=== PATIENT | female | born 1930 | race Caucasian/White ===

== ENCOUNTER → 2018-03-26 | Outpatient (CLI) | payer MEDICARE, BC ==
--- NOTE | 2018-03-26 12:57 | US ---
EXAMINATION TYPE: US abdomen complete DATE OF EXAM: 03/26/2018 COMPARISON: NONE CLINICAL HISTORY: R10.10 abd pain unspec. elderly patient with abd pain that has since stopped eu to medication EXAM MEASUREMENTS: Liver Length: 14.8 cm Gallbladder Wall: 0.2 cm CBD: 0.2 cm Spleen: 8.5 cm Right Kidney: 9.0 x 3.4 x 3.1 cm Left Kidney: N/A Pancreas: wnl Liver: wnl Gallbladder: wnl Evidence for sonographic Collins's sign: no CBD: wnl Spleen: wnl Right Kidney: wnl Left Kidney: not seen due to bowel gas Upper IVC: wnl Abd Aorta: wnl The liver is homogenous. The intrahepatic portion of the IVC and proximal abdominal aorta are within normal limits. There is no evidence of cholelithiasis. Common bile duct is unremarkable. The visu alized portions of the pancreas are homogenous. The spleen is unremarkable. Kidneys are symmetric a nd free of hydronephrosis. No renal lesions are seen. IMPRESSION: No distinct abnormality seen.
== END | disposition home or self-care (01) ==
LOC: RADUSWWP 12:15
PROVIDERS: ATTEND Internal Medicine
DX: R10.10 Upper abdominal pain, unspecified (principal)
CPT/HCPCS: 76700

== ENCOUNTER → 2018-04-04 | Outpatient (CLI) | payer MEDICARE, BC ==
--- NOTE | 2018-04-04 15:19 | NM ---
EXAMINATION TYPE: NM hepatobiliary w EF DATE OF EXAM: 04/04/2018 COMPARISON: HIDA scan January 31, 2011. Complete abdominal ultrasound March 26, 2018 HISTORY: Right upper quadrant pain. TECHNIQUE: After the intravenous administration of 4.93 mCi Tc 99m Mebrofenin hepatobiliary scintigra phy is performed. Immediate images post injection. FINDINGS: There is satisfactory initial accumulation of tracer by the liver. The gallbladder is visualized wit hin 30 minutes. The small bowel activity is noted within 60 minutes. At one hour 8 ounces of oral e nsure plus is given to mimic CCK and gallbladder ejection fraction is calculated at 54 %, in the norm al range. Therefore there is no scintigraphic evidence of cystic or common bile duct obstruction to suggest acute cholecystitis or gallbladder dyskinesia. IMPRESSION: Exam is within normal limits.
== END ==
LOC: RADNMMAIN 12:55
PROVIDERS: ATTEND Internal Medicine
DX: R10.10 Upper abdominal pain, unspecified (principal)
CPT/HCPCS: 78226; A9537

== ENCOUNTER 2018-07-03 21:51 | Emergency (ER) | payer MEDICARE, BC ==
[2018-07-03 21:57] VITALS: RESP 16; TEMP 98.3
--- NOTE | 2018-07-03 22:42 | ED ---
General Adult HPI - General Chief complaint: Recheck/Abnormal Lab/Rx Stated complaint: Constipation Time Seen by Provider: 07/03/18 22:08 Source: patient Mode of arrival: ambulatory Limitations: no limitations - History of Present Illness Initial comments: This patient is an 88-year-old woman who presents with complaint of feeling constipated for 2 days. She states that she did not have a bowel movement yesterday. Today she tried using suppository twice. She states that she has been having urge to have bowel movement but the mother will be perianal pain which seems to prevent her having bowel movement. She is also complaining of having some leakage of watery stool today. Onset/Timin -: days(s) Radiation: non-radiation Consistency: constant Improves with: none Worsens with: none Associated Symptoms: denies other symptoms Treatments Prior to Arrival: none - Related Data Home Medications Medication Instructions Recorded Confirmed Ascorbic Acid [Vitamin C] 500 mg PO DAILY 09/14/15 07/03/18 Calcium Carbonate [Calcium] 600 mg PO DAILY 09/14/15 07/03/18 L.acidoph,Paracasei, B.lactis 1 cap PO DAILY 09/14/15 07/03/18 [Probiotic] Cholecalciferol [Vitamin D3] 1,000 unit PO DAILY 09/30/15 07/03/18 Multivit-Min/FA/Lycopen/Lutein 1 tab PO DAILY 09/30/15 07/03/18 [Centrum Silver Tablet] Magnesium Tab 1 tab PO QAM 10/19/15 07/03/18 Aspirin EC [Ecotrin Low Dose] 162 mg PO DAILY 07/03/18 07/03/18 Atenolol [Tenormin] 50 mg PO BID 07/03/18 07/03/18 Atorvastatin Calcium [Lipitor] 10 mg PO DAILY 07/03/18 07/03/18 Losartan [Cozaar] 25 mg PO BID 07/03/18 07/03/18 Magnesium Tab 2 tab PO HS 07/03/18 07/03/18 Mirabegron [Myrbetriq] 25 mg PO AC-SUPPER 07/03/18 07/03/18 Omeprazole 20 mg PO DAILY 07/03/18 07/03/18 amLODIPine [Norvasc] 5 mg PO DAILY 07/03/18 07/03/18 Allergies Allergy/AdvReac Type Severity Reaction Status Date / Time nickel Allergy Rash/Hives Verified 07/03/18 22:11 valacyclovir Allergy Confusion Verified 07/03/18 22:11 weeds Allergy Rash/Hives Uncoded 07/03/18 21:57 Review of Systems ROS Statement: Those systems with pertinent positive or pertinent negative responses have been documented in the HPI. ROS Other: All systems not noted in ROS Statement are negative. Constitutional: Denies: fever, chills Respiratory: Denies: cough, dyspnea Cardiovascular: Denies: chest pain, palpitations Gastrointestinal: Reports: constipation. Denies: abdominal pain, nausea, vomiting, diarrhea, melena, hematochezia Genitourinary: Denies: dysuria, hematuria Musculoskeletal: Denies: back pain Skin: Denies: rash Past Medical History Past Medical History: Atrial Flutter, GERD/Reflux, Hypertension, Osteoarthritis (OA), Pneumonia, Skin Disorder Additional Past Medical History / Comment(s): heart murmer, hiatal hernia, gastritis, constipation, cellulitis lower left leg, hx anemia, precancerous skin cancer, just finished rx for cat scratch on leg-cleared up History of Any Multi-Drug Resistant Organisms: None Reported Past Surgical History: Adenoidectomy, Hernia Repair, Joint Replacement, Tonsillectomy Additional Past Surgical History / Comment(s): EXC JARVIS CATARACTS. SURG Jarvis Feet. Jarvis Breast Biopsies. Jarvis CTR. TOTAL LT KNEE. Past Anesthesia/Blood Transfusion Reactions: No Reported Reaction Past Psychological History: No Psychological Hx Reported Smoking Status: Never smoker Past Alcohol Use History: None Reported Past Drug Use History: None Reported - Past Family History Father Additional Family Medical History / Comment(s): Cerebral Blood Clot General Exam Limitations: no limitations General appearance: alert, in no apparent distress Head exam: Present: atraumatic, normocephalic Eye exam: Present: normal appearance Respiratory exam: Present: normal lung sounds bilaterally. Absent: respiratory distress, wheezes, rales, rhonchi, stridor Cardiovascular Exam: Present: regular rate, normal rhythm, normal heart sounds GI/Abdominal exam: Present: soft. Absent: distended, tenderness, guarding, rebound, rigid, mass Rectal exam: Present: normal rectal tone, fecal impaction, hemorrhoids. Absent : mass, tenderness Extremities exam: Present: normal inspection, normal capillary refill. Absent: pedal edema, calf tenderness Neurological exam: Present: alert Skin exam: Present: warm, dry, intact, normal color. Absent: rash Course Vital Signs 07/03/18 21:53 Temperature 98.3 F Pulse Rate 59 L Respiratory 16 Rate Blood Pressure 144/80 O2 Sat by Pulse 96 Oximetry Medical Decision Making - Medical Decision Making Patient is an 88-year-old woman with fecal impaction. After discussion of risks and benefits, patient does agree to bedside disimpaction. He was given a small dose of morphine prior. I then performed digital disimpaction. The patient tolerated with a trace of bleeding, no complications. Discussed further care and follow-up. Disposition Clinical Impression: Fecal impaction in rectum Disposition: HOME SELF-CARE Condition: Fair Instructions (If sedation given, give patient instructions): Constipation (ED) Is patient prescribed a controlled substance at d/c from ED?: No Referrals: Andrew Cain MD [Primary Care Provider] - 1-2 days
[2018-07-04] MEDS ORDERED: MORPHINE SULFATE 4 MG/ML SYRINGE IM STA (00:32)
[2018-07-04] MEDS ORDERED: MAGNESIUM CITRATE 296 ML BOTTLE PO ONE (01:33)
[2018-07-04 02:41] VITALS: BP 126/71; PULSE 80
== END 2018-07-04 02:40 | disposition home or self-care (01) ==
LOC: EC 21:51
DX: K56.41 Fecal impaction (principal); I48.92 Unspecified atrial flutter; K21.9 Gastro-esophageal reflux disease without esophagitis; I10 Essential (primary) hypertension; M19.90 Unspecified osteoarthritis, unspecified site; D64.9 Anemia, unspecified; Z85.828 Personal history of other malignant neoplasm of skin; Z79.82 Long term (current) use of aspirin; Z79.899 Other long term (current) drug therapy; Z88.8 Allergy status to other drugs, medicaments and biological substances; Z91.048 Other nonmedicinal substance allergy status; Z96.652 Presence of left artificial knee joint
CPT/HCPCS: 96372; 99283

== ENCOUNTER → 2020-01-13 | Outpatient (CLI) | payer MEDICARE, BC ==
[2020-01-13 16:25] LABS: Basophils # (A) 0.1 k/uL (0-0.2); Basophils % (A) 1 %; Eosinophils # (A) 0.2 k/uL (0-0.7); Eosinophils % (A) 2 %; HCT 38.8 % (34.0-46.0); HGB 12.4 gm/dL (11.4-16.0); Lymphocytes # (A) 1.4 k/uL (1.0-4.8); Lymphocytes % (A) 20 %; MCHC 31.9 g/dL (31.0-37.0); MCV 97.1 fL (80.0-100.0); Mean Platelet Volume 6.8; Monocytes # (A) 0.6 k/uL (0-1.0); Monocytes % (A) 8 %; Neutrophils # (A) 4.7 k/uL (1.3-7.7); Neutrophils % (A) 65 %; Platelet Count 238 k/uL (150-450); WBC 7.2 k/uL (3.8-10.6)
== END | disposition home or self-care (01) ==
LOC: LABWHC1 15:31
PROVIDERS: ATTEND Nurse Practitioner
DX: K62.5 Hemorrhage of anus and rectum (principal)
CPT/HCPCS: 36415; 85025

== ENCOUNTER → 2020-01-16 | Outpatient (CLI) | payer MEDICARE, BC ==
--- NOTE | 2020-01-16 13:33 | MR ---
EXAMINATION TYPE: MR abdomen wo/w con DATE OF EXAM: 01/16/2020 COMPARISON: None available. The technologist reports that a stat read is requested. Technologist also reports that prior imaging was done at [facility] and unable to get any prior reports until Saturday. HISTORY: 89-year-old female R93.5 Abnormal Findings intra-abdominal regions including and retroperito neum. Possible pancreatic head mass, duodenal mass, gastric outlet obstruction. Technique: Multiplanar, multisequence images of the abdomen were obtained before and after administra tion of 4.5 mL intravenous Gadavist gadolinium contrast. FINDINGS: Trace perihepatic ascites is noted. No focal liver lesion. No significant loss of signal to suggest f atty infiltration on opposed phase T1-weighted images. There is some focal biliary ductal dilatation along the anterior mid liver. Portal venous system. How ever, prominent vessels noted along the anterior mid liver that joins to the left portal vein, possib le intrahepatic portosystemic shunting. Mild bilateral pelvicaliectasis. Probable extrarenal pelvis on both sides. Symmetric uptake and excre tion of contrast from both kidneys. Otherwise, spleen, adrenal glands, and gallbladder appear within normal limits. No definite pancreatic lesion. Crowded structures and motion artifact limits assessment. There is a dextro convex scoliosis centered along the upper lumbar spine. Moderate stool burden. No upper abdominal lymphadenopathy identified. 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 IMPRESSION: 1. There are exam limitations due to motion and crowded intra-abdominal structures. No definite pancr eatic head mass is identified. There is no abnormal distention of the stomach on the present exam whi ch would generally be seen with gastric outlet obstruction. Recommend making the patient's outside im aging (where these findings were described) available for review after which a second look assessment can be performed. 2. Some focal intrahepatic biliary ductal dilatation along the anterior mid liver. There also seems t o be some prominent vasculature in this region, probable intrahepatic portosystemic shunting. No susp icious mass is clearly identified. 3. Bilateral extrarenal pelves. Moderate stool burden. 4. 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
== END | disposition home or self-care (01) ==
LOC: RADMRIMAIN 11:13
PROVIDERS: ATTEND Nurse Practitioner
DX: I71.4 Abdominal aortic aneurysm, without rupture (principal); K83.8 Other specified diseases of biliary tract
CPT/HCPCS: 74183; A9585

== ENCOUNTER → 2020-01-27 | Day surgery (SDC) | payer MEDICARE, BC ==
[2020-01-26 12:40] VITALS: BMI 18.8
[~2020-01-27] MED LIST: LACTATED RINGERS 1,000 ML IV SCH; LIDOCAINE 1% (10MG/ML) FOR IV START INTRADERMA PRN; PROPOFOL 10 MG/ML 20 ML VIAL IV ONE
[2020-01-27 11:44] VITALS: RESP 16; TEMP 98
--- NOTE | 2020-01-27 12:51 | P.PCN ---
Date of Procedure: 01/27/20 Procedure(s) Performed: Brief history: Patient is a pleasant 89-year-old white female scheduled for an elective upper endoscopy as well as colonoscopy as a part of evaluation of with active bleeding for the last several months duration. She also had an MRI of the abdomen done that showed evidence of possible gastric outlet obstruction and dilated duodenum. Procedure performed: Esophagogastroduodenoscopy Colonoscopy with snare polypectomy, cautery and Endo Clip placement Preoperative diagnosis: Dilated and duodenum and recent MRI Rectal bleeding Anesthesia: MAC Procedure: After informed consent was obtained from the patient was brought into the endoscopy unit and IV sedation was administered by anesthesia under continuous monitoring. Initially upper endoscopy was done. The Olympus GF 160 video endoscope was inserted inserted into the mouth and esophagus intubated without any difficulty and was gradually advanced into the stomach and duodenum and carefully examined. The bulb and second part of the duodenum appeared normal. The scope was advanced into the third part of the duodenum that also appeared normal. The scope was then withdrawn into the stomach adequately insufflated with air and upon careful examination the antrum and body, cardia and fundus appeared normal. The scope was then withdrawn into the esophagus. Moderate size hiatal hernia noted. The GE junction was located at 34 cm to the incisors. It appeared regular with no erythema erosions or ulcerations. Rest of the esophagus appeared normal. Patient tolerated the procedure well. At this time the patient continued to remain sedation. Initial digital rectal examination was normal. Olympus CF 160 video colonoscope was then inserted into the rectum and gradually advanced to the cecum without any difficulty. Careful examination was performed as the scope was gradually being withdrawn. The prep was excellent. The cecum, ascending colon, transverse colon, descending colon, sigmoid colon and rectum appeared normal. Retroflexion was performed in the rectum and all the dentate line there was a 2 cm friable polyp noted which was removed by snare polypectomy and piecemeal fashion. Following the polypectomy there was significant bleeding noted at the polypectomy site and hence initially go probe was performed using cautery and could not achieve hemostasis. Subsequently an Endo Clip was placed and hemostasis was achieved.. Patient tolerated the procedure well. Impression: 1. Upper endoscopy revealed small to moderately sessile hernia but no evidence of esophagitis or peptic ulcer disease. 2. Colonoscopy revealed a 2 cm polyp on the dentate line status post snare polypectomy followed by bleeding, status post cautery and Endo Clip placements with good hemostasis Recommendations: Findings of this examination were discussed with the patient as well as her family.. She was advised to follow with the biopsy results she'll be seen in office in 2 weeks. Based on the biopsy results will plan a repeat sigmoidoscopy in 3 months.
[2020-01-27 13:17] VITALS: BP 140/65; PULSE 59
== END ==
LOC: ORWHC2ENDO 10:38
PROVIDERS: ATTEND Internal Medicine Gastroenterology
DX: D01.3 Carcinoma in situ of anus and anal canal (principal); R23.8 Other skin changes; A63.0 Anogenital (venereal) warts; K44.9 Diaphragmatic hernia without obstruction or gangrene; I10 Essential (primary) hypertension; E78.5 Hyperlipidemia, unspecified; K21.9 Gastro-esophageal reflux disease without esophagitis; Z79.899 Other long term (current) drug therapy; Z79.82 Long term (current) use of aspirin; Z91.09 Other allergy status, other than to drugs and biological substances; Z97.2 Presence of dental prosthetic device (complete) (partial)
CPT/HCPCS: 88305; 88342; 88341; 45385; 43235; J2704; 45382

== ENCOUNTER 2020-04-29 08:53 | Day surgery (SDC) | payer MEDICARE, BC ==
[2020-04-27 15:12] VITALS: BMI 18.5
[~2020-04-29 08:53] MED LIST changes: +ACETAMINOPHEN TAB 500 MG TAB PO PRN; +DEXAMETHASONE SOD PHOSPHATE 4 MG/ML 1 ML VIAL IV ONE; +HEPARIN SODIUM,PORCINE 5,000 UNIT/ML 1 ML VIAL SQ PRN; +HYDROmorphone 0.5 MG/0.5 ML SYRINGE IVP PRN; -LIDOCAINE 1% (10MG/ML) FOR IV START INTRADERMA PRN; +MIDAZOLAM 2 MG/2 ML VIAL IV PRN; +ONDANSETRON 4 MG/2 ML VIAL IVP ONE; -PROPOFOL 10 MG/ML 20 ML VIAL IV ONE; +Pre Op ABX Message 1 EACH MISC MISCELLANE ONE
[2020-04-29] MEDS ORDERED: NA PHOS,M-B/NA PHOS,DI-BA 133 ML ENEMA RECTAL ONE (09:10)
--- NOTE | 2020-04-29 09:21 | P.GSHP ---
History of Present Illness H&P Date: 04/29/20 Chief Complaint: anal polyp 89-year-old female recently found to have a polypoid mass at the dentate line on colonoscopy. This was removed using the snare with cautery technique in a piecemeal fashion. Bleeding was identified and controlled using an Endo Clip. 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 She was seen in the office following that. Patient denied discussed options. We are here today to proceed with examination under anesthesia and possible surgical excision of any residual polypoid tissue. Patient otherwise asymptomatic. Past Medical History Past Medical History: Atrial Flutter, GERD/Reflux, Hypertension, Osteoarthritis (OA), Pneumonia, Skin Disorder Additional Past Medical History / Comment(s): anal lesion,hx heart murmer, hiatal hernia, gastritis, constipation, cellulitis lower left leg, hx anemia, precancerous skin cancer History of Any Multi-Drug Resistant Organisms: None Reported Past Surgical History: Adenoidectomy, Hernia Repair, Joint Replacement, Tonsillectomy Additional Past Surgical History / Comment(s): EXC JARVIS CATARACTS. SURG Jarvis Feet. Jarvis Breast Biopsies. Jarvis CTR. TOTAL LT KNEE. Past Anesthesia/Blood Transfusion Reactions: No Reported Reaction Additional Past Anesthesia/Blood Transfusion Reaction / Comment(s): no hx problems with prior blood transfusions Smoking Status: Never smoker - Past Family History Father Additional Family Medical History / Comment(s): Cerebral Blood Clot Mother Family Medical History: No Reported History Medications and Allergies Home Medications Medication Instructions Recorded Confirmed Type Ascorbic Acid [Vitamin C] 500 mg PO DAILY 09/14/15 04/27/20 History Calcium Carbonate [Calcium] 600 mg PO BID 09/14/15 04/27/20 History L.acidoph,Paracasei, B.lactis 1 cap PO DAILY 09/14/15 04/27/20 History [Probiotic] Cholecalciferol [Vitamin D3] 1,000 unit PO DAILY 09/30/15 04/27/20 History Multivit-Min/FA/Lycopen/Lutein 1 tab PO DAILY 09/30/15 04/27/20 History [Centrum Silver Tablet] Aspirin EC [Ecotrin Low Dose] 81 mg PO BID 07/03/18 04/27/20 History Atorvastatin Calcium [Lipitor] 10 mg PO DAILY 07/03/18 04/27/20 History Losartan [Cozaar] 25 mg PO BID 07/03/18 04/27/20 History Omeprazole 20 mg PO QAM 07/03/18 04/27/20 History amLODIPine [Norvasc] 5 mg PO QAM 07/03/18 04/27/20 History atenoloL [Tenormin] 50 mg PO BID 07/03/18 04/27/20 History Iron 27 mg PO DAILY 01/26/20 04/27/20 History Magnesium 150 mg PO BID 01/26/20 04/27/20 History Melatonin 5 mg PO HS 04/27/20 04/27/20 History [place]-3 Fatty Acids/Fish Oil [Fish 600 mg PO BID 04/27/20 04/27/20 History Oil 1,000 mg Softgel] Allergies Allergy/AdvReac Type Severity Reaction Status Date / Time nickel Allergy Rash/Hives Verified 04/27/20 14:57 Surgical - Exam Physical exam: General: Well-developed, well-nourished HEENT: Normocephalic, sclerae nonicteric Abdomen: Nontender, nondistended Extremities: No edema Neuro: Alert and oriented Assessment and Plan (1) Anal polyp Narrative/Plan: 89-year-old female with anal polyp. We'll proceed with examination under anesthesia with surgical excision. Risks of bleeding, infection, scarring, stricture, incontinence, possible need for further procedures reviewed. They understand and wish to proceed. Current Visit: Yes Status: Acute Code(s): K62.0 - ANAL POLYP SNOMED Code(s): 06091159
[2020-04-29] MEDS ORDERED: LIDOCAINE 1% (10MG/ML) FOR IV START INTRADERMA ONE (10:00)
[2020-04-29] MEDS ORDERED: MIDAZOLAM 2 MG/2 ML VIAL ONE (11:00)
[2020-04-29] MEDS ORDERED: fentaNYL (PF) 50 MCG/ML 2 ML AMP ONE (11:00)
[2020-04-29] MEDS ORDERED: KETAMINE 10 MG/ML 20 ML VIAL ONE (11:00)
[2020-04-29] MEDS ORDERED: PROPOFOL 10 MG/ML 20 ML VIAL IV ONE (11:00)
[2020-04-29] MEDS ORDERED: GLYCOPYRROLATE 0.2 MG/ML 2 ML VIAL ONE (11:00)
[2020-04-29] MEDS ORDERED: SODIUM CHLORIDE 0.9% 100 ML with ceFAZolin 2,000 MG IV ONE ×2 (11:17)
[2020-04-29] MEDS ORDERED: BUPIVACAINE (PF) 0.25% 30 ML VIAL SQ ONE (11:19)
[2020-04-29] MEDS ORDERED: GELATIN SPONGE,ABSORB (LARGE) 1 EACH SPONGE TOPICAL ONE (11:28)
[2020-04-29] MEDS ORDERED: NALOXONE 0.4 MG/ML 1 ML VIAL IV PRN (11:40)
--- NOTE | 2020-04-29 11:43 | P.OP ---
Date of Procedure: 04/29/20 Procedure(s) Performed: PREOPERATIVE DIAGNOSIS: Anal polyp POSTOPERATIVE DIAGNOSIS: 2 separate small rectal polypoid lesions PROCEDURE: Examination under anesthesia with excision 2 rectal polypoid lesions SURGEON: Chirag EBL: 5 mL ANESTHESIA: Patient plus local COMPLICATIONS: None OPERATIVE PROCEDURE: Patient brought in place in the operating table in the prone jackknife position. Perianal region prepped and draped sterilely. Sedated per anesthesia. Marcaine solution used to anesthetize the taye-anal region. Rectal retractor utilized. Patient had 2 1 cm sessile polypoid lesions present 1 just anterior to the dentate line in the right jared-location and one in the left anterolateral location. Both areas were addressed similarly. A 3-0 chromic stitch was placed proximal to the lesions. Lesions were excised using Harmonic scalpel. The defect was closed using a running locking 3-0 chromic s titch. No bleeding was seen. A Gelfoam roll was placed in the distal rectum. Sterile outer dressings applied. DISPOSITION: Stable to recovery room
[2020-04-29 11:50] VITALS: TEMP 97.3
[2020-04-29 11:54] VITALS: RESP 16
[2020-04-29 12:47] VITALS: BP 131/71; PULSE 65
== END 2020-04-29 13:30 | disposition home or self-care (01) ==
LOC: OR 08:53
PROVIDERS: ATTEND Surgery
DX: D01.2 Carcinoma in situ of rectum (principal); K62.82 Dysplasia of anus; I11.0 Hypertensive heart disease with heart failure; I50.9 Heart failure, unspecified; I48.92 Unspecified atrial flutter; K21.9 Gastro-esophageal reflux disease without esophagitis; M19.90 Unspecified osteoarthritis, unspecified site; D64.9 Anemia, unspecified; Z79.82 Long term (current) use of aspirin; Z79.899 Other long term (current) drug therapy; Z87.01 Personal history of pneumonia (recurrent); Z96.652 Presence of left artificial knee joint; Z98.41 Cataract extraction status, right eye; Z91.048 Other nonmedicinal substance allergy status; Z98.42 Cataract extraction status, left eye; Z90.89 Acquired absence of other organs; Z82.49 Family history of ischemic heart disease and other diseases of the circulatory system; Z85.828 Personal history of other malignant neoplasm of skin
CPT/HCPCS: 46922; 88305; J2250; J1644; J1100; J2405; J0690; J3010; J2704

== ENCOUNTER → 2020-06-10 | Outpatient (CLI) | payer MEDICARE, BC ==
--- NOTE | 2020-06-11 03:33 | MR ---
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 Several hernias. CONTRAST: Standard multiplanar, multisequence MRI departmental protocol utilizing 5 mL intravenous Gadavist vee olinium contrast. On the axial images there is demonstrated a 2 x 1 cm mass on the posterior wall of the rectum which s hows some enhancement on the delayed images of contrast. This consistent with a sessile tumor. I see no enlarged pelvic lymph nodes. There is no free fluid in the pelvis. The bony structures are intact. Urinary bladder is somewhat irregular. No bladder wall mass seen. Uterus appears absent. The remainder of exam is unremarkable. IMPRESSION: Posterior wall rectal mass consistent with tumor. 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
== END | disposition home or self-care (01) ==
LOC: RADMRIMAIN 16:45
PROVIDERS: ATTEND Radiology Radiation Oncology
DX: M48.07 Spinal stenosis, lumbosacral region (principal); M51.27 Other intervertebral disc displacement, lumbosacral region; M47.817 Spondylosis without myelopathy or radiculopathy, lumbosacral region; D01.3 Carcinoma in situ of anus and anal canal
CPT/HCPCS: 72197; A9585

== ENCOUNTER 2020-08-16 09:55 | Day surgery (SDC) | payer MEDICARE, BC ==
[2020-08-11 14:42] VITALS: BMI 18.8
[~2020-08-16 09:55] MED LIST changes: -ACETAMINOPHEN TAB 500 MG TAB PO PRN; -DEXAMETHASONE SOD PHOSPHATE 4 MG/ML 1 ML VIAL IV ONE; -HEPARIN SODIUM,PORCINE 5,000 UNIT/ML 1 ML VIAL SQ PRN; -HYDROmorphone 0.5 MG/0.5 ML SYRINGE IVP PRN; +LIDOCAINE 1% (10MG/ML) FOR IV START INTRADERMA PRN; -MIDAZOLAM 2 MG/2 ML VIAL IV PRN; -ONDANSETRON 4 MG/2 ML VIAL IVP ONE; -Pre Op ABX Message 1 EACH MISC MISCELLANE ONE
[2020-08-16 10:25] VITALS: RESP 16; TEMP 97.8
[2020-08-16] MEDS ORDERED: PROPOFOL 10 MG/ML 20 ML VIAL IV ONE (10:42)
--- NOTE | 2020-08-16 10:48 | P.GSHP ---
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 Patient underwent transanal excision of 2 rectal polypoid lesions. Both of these were relatively unimpressive in appearance. Each of these measured approximately 1 cm in size. Both of these were more in the anterior location area and patient was seen by radiation oncology to discuss further options and an MRI was ordered. MRI showed a 2 x 1 cm posterior rectal wall abnormality. Here today for reevaluation. Patient otherwise asymptomatic. Past Medical History Past Medical History: Atrial Flutter, GERD/Reflux, Hypertension, Osteoarthritis (OA), Pneumonia, Skin Disorder Additional Past Medical History / Comment(s): Anal lesion, hx heart murmer, hiatal hernia, gastritis, constipation, cellulitis lower left leg, hx anemia, precancerous skin cancer. History of Any Multi-Drug Resistant Organisms: None Reported Past Surgical History: Adenoidectomy, Hernia Repair, Joint Replacement, Tonsillectomy Additional Past Surgical History / Comment(s): EXC JARVIS CATARACTS. SURG Jarvis Feet. Jarvis Breast Biopsies. Jarvis CTR. TOTAL LT KNEE. Past Anesthesia/Blood Transfusion Reactions: No Reported Reaction Additional Past Anesthesia/Blood Transfusion Reaction / Comment(s): No hx problems with prior blood transfusions. Past Psychological History: No Psychological Hx Reported Smoking Status: Never smoker Past Alcohol Use History: None Reported Past Drug Use History: None Reported - Past Family History Father Additional Family Medical History / Comment(s): Cerebral Blood Clot Mother Family Medical History: No Reported History Medications and Allergies Home Medications Medication Instructions Recorded Confirmed Type Ascorbic Acid [Vitamin C] 500 mg PO DAILY 09/14/15 08/11/20 History Calcium Carbonate [Calcium] 600 mg PO BID 09/14/15 08/11/20 History L.acidoph,Paracasei, B.lactis 1 cap PO DAILY 09/14/15 08/11/20 History [Probiotic] Cholecalciferol [Vitamin D3] 1,000 unit PO DAILY 09/30/15 08/11/20 History Multivit-Min/FA/Lycopen/Lutein 1 tab PO DAILY 09/30/15 08/11/20 History [Centrum Silver Tablet] Aspirin EC [Ecotrin Low Dose] 81 mg PO BID 07/03/18 08/11/20 History Atorvastatin Calcium [Lipitor] 10 mg PO HS 07/03/18 08/11/20 History Losartan [Cozaar] 25 mg PO QAM 07/03/18 08/11/20 History Omeprazole 20 mg PO QAM 07/03/18 08/11/20 History amLODIPine [Norvasc] 5 mg PO QAM 07/03/18 08/11/20 History atenoloL [Tenormin] 50 mg PO BID 07/03/18 08/11/20 History Iron 27 mg PO DAILY 01/26/20 08/11/20 History Magnesium 150 mg PO DAILY 01/26/20 08/11/20 History Melatonin 5 mg PO HS 04/27/20 08/11/20 History [place]-3 Fatty Acids/Fish Oil [Fish 600 mg PO BID 04/27/20 08/11/20 History Oil 1,000 mg Softgel] Allergies Allergy/AdvReac Type Severity Reaction Status Date / Time nickel Allergy Rash/Hives Verified 08/16/20 10:12 Surgical - Exam Vital Signs Temp Pulse Resp BP Pulse Ox 97.8 F 61 16 161/74 100 08/16/20 10:18 08/16/20 10:18 08/16/20 10:18 08/16/20 10:18 08/16/20 10:18 Physical exam: General: Well-developed, well-nourished HEENT: Normocephalic, sclerae nonicteric Abdomen: Nontender, nondistended Extremities: No edema Neuro: Alert and oriented Assessment and Plan (1) Anal polyp Narrative/Plan: Will proceed with flexible sigmoidoscopy. Current Visit: No Status: Acute Code(s): K62.0 - ANAL POLYP SNOMED Code(s): 69167540
--- NOTE | 2020-08-16 10:59 | P.PCN ---
Date of Procedure: 08/16/20 Procedure(s) Performed: PREOPERATIVE DIAGNOSIS: Anal squamous cell carcinoma in situ POSTOPERATIVE DIAGNOSIS: Exam PROCEDURE: Flexible sigmoidoscopy ANESTHESIA: MAC SURGEON: Cresencio Beard M.D. SPECIMENS: None ENDOSCOPIC PROCEDURE: The patient was placed on the endoscopy table in the left decubitus position. The Olympus colonoscope was inserted into the anus and passed under direct visualization to the proximal rectum. The patient had retained stool proximal to that limiting the visualization. The mid and distal rectum appeared normal. Retroflexion at the anus demonstrated some scarring where we had proceeded previously with our transanal excisions. There were no abnormal mucosal surfaces visualized. Small internal and external hemorrhoids were seen. Digital rectal examination was normal. Digital rectal examination was normal. The patient was taken to the recovery room in stable condition per anesthesia guidelines. RECOMMENDATIONS: Resume diet. We'll discuss endoscopic findings with the family. Likely will not proceed with further imaging unless develops symptoms.
[2020-08-16 11:04] VITALS: BP 93/53; PULSE 56
== END 2020-08-16 11:52 | disposition home or self-care (01) ==
LOC: ORWHC2ENDO 09:55
PROVIDERS: ATTEND Surgery
DX: D01.3 Carcinoma in situ of anus and anal canal (principal); K64.4 Residual hemorrhoidal skin tags; K64.8 Other hemorrhoids; D64.9 Anemia, unspecified; I11.0 Hypertensive heart disease with heart failure; I50.9 Heart failure, unspecified; K21.9 Gastro-esophageal reflux disease without esophagitis; M19.90 Unspecified osteoarthritis, unspecified site; Z79.82 Long term (current) use of aspirin; Z79.899 Other long term (current) drug therapy; Z85.828 Personal history of other malignant neoplasm of skin; Z88.8 Allergy status to other drugs, medicaments and biological substances
CPT/HCPCS: 45330; J2704

== ENCOUNTER → 2020-09-21 | Outpatient (CLI) | payer MEDICARE, BC ==
--- NOTE | 2020-09-21 18:08 | MR ---
EXAMINATION TYPE: MR lumbar spine wo con DATE OF EXAM: 09/21/2020 COMPARISON: NONE HISTORY: Back pain TECHNIQUE: T1 and T2 axial and sagittal images of the lumbar spine are submitted. FINDINGS: There is no abnormal signal seen within the visualized spinal cord or paraspinal soft tissu es. At T12/L1 there are severe degenerative disc disease but no disc herniation or canal stenosis. No for aminal encroachment. At L1-L2 there is severe degenerative disc disease with posterior disc bulging. There is posterior sp ondylosis with bilateral foraminal encroachment greater on the left. L2-L3 there is severe degenerative disc disease with facet arthropathy. Central disc bulging is noted . There is moderate bilateral foraminal encroachment. Mild central stenosis. At L3-4 there is degenerative disc disease with ligamentum flavum and facet hypertrophy and diffuse d isc bulging resulting in moderate to severe canal stenosis. Moderate left foraminal encroachment. At L4-5 there is degenerative disc disease with advanced facet arthropathy and ligamentum flavum hype rtrophy. Small synovial cyst on the right not excluded. There is moderate to severe canal stenosis. T here is bilateral moderate foraminal encroachment. At L5-S1 there is severe degenerative disc disease with facet arthropathy and ligamentum flavum hyper trophy. Central disc protrusion contributes to moderate canal stenosis and bilateral foraminal encroa chment. IMPRESSION: 1. Multilevel severe degenerative disc disease, scoliosis, and significant foraminal encroachment. Mu ltilevel canal stenosis as discussed above most marked at L3-4 and L4-5.
== END | disposition home or self-care (01) ==
LOC: RADMRIMAIN 14:16
PROVIDERS: ATTEND Nurse Practitioner Family
DX: M51.36 Other intervertebral disc degeneration, lumbar region (principal); M48.061 Spinal stenosis, lumbar region without neurogenic claudication; M51.26 Other intervertebral disc displacement, lumbar region; M47.816 Spondylosis without myelopathy or radiculopathy, lumbar region; M99.73 Connective tissue and disc stenosis of intervertebral foramina of lumbar region
CPT/HCPCS: 72148

== ENCOUNTER → 2020-12-01 | Outpatient (CLI) | payer MEDICARE, BC ==
[2020-12-01 11:39] VITALS: BP 121/68; PULSE 80; RESP 18; TEMP 98.3
--- NOTE | 2020-12-01 12:03 | P.PAINCN ---
History of Present Illness - Reason for Consult Consult date: 12/01/20 - History of Present Illness This is 89 years old female with a chronic history of severe low back pain, and left lower extremity pain started more than a year ago, intensity of the pain increased over the last 6 months it's constant and increases with any activity interfere with the quality of life, she denies any motor or sensory deficit she denies any change in the bowel movements or urination, patient tried physical therapy, heat and ice, chiropractors, NSAIDs, steroid early without any benefit, she ambulate without difficulty, the pain intensity interfere with her activity Past Medical History Past Medical History: Atrial Flutter, GERD/Reflux, Hypertension, Osteoarthritis (OA), Pneumonia, Skin Disorder Additional Past Medical History / Comment(s): Anal lesion, hx heart murmer, hiatal hernia, gastritis, constipation, cellulitis lower left leg, hx anemia, precancerous skin cancer. History of Any Multi-Drug Resistant Organisms: None Reported Past Surgical History: Adenoidectomy, Hernia Repair, Joint Replacement, Tonsillectomy Additional Past Surgical History / Comment(s): EXC JARVIS CATARACTS. SURG Jarvis Feet. Jarvis Breast Biopsies. Jarvis CTR. TOTAL LT KNEE. Past Anesthesia/Blood Transfusion Reactions: No Reported Reaction Additional Past Anesthesia/Blood Transfusion Reaction / Comm: No hx problems with prior blood transfusions. Past Psychological History: No Psychological Hx Reported Smoking Status: Never smoker Past Alcohol Use History: None Reported Past Drug Use History: None Reported - Past Family History Father Additional Family Medical History / Comment(s): Cerebral Blood Clot Mother Family Medical History: No Reported History Medications and Allergies Home Medications Medication Instructions Recorded Confirmed Type Ascorbic Acid [Vitamin C] 500 mg PO DAILY 09/14/15 12/01/20 History Calcium Carbonate [Calcium] 600 mg PO BID 09/14/15 12/01/20 History L.acidoph,Paracasei, B.lactis 1 cap PO DAILY 09/14/15 12/01/20 History [Probiotic] Cholecalciferol [Vitamin D3] 1,000 unit PO DAILY 09/30/15 12/01/20 History Multivit-Min/FA/Lycopen/Lutein 1 tab PO DAILY 09/30/15 12/01/20 History [Centrum Silver Tablet] Aspirin EC [Ecotrin Low Dose] 81 mg PO BID 07/03/18 12/01/20 History Atorvastatin Calcium [Lipitor] 10 mg PO HS 07/03/18 12/01/20 History Losartan [Cozaar] 25 mg PO BID 07/03/18 12/01/20 History Omeprazole 20 mg PO QAM 07/03/18 12/01/20 History amLODIPine [Norvasc] 5 mg PO QAM 07/03/18 12/01/20 History Iron 27 mg PO DAILY 01/26/20 12/01/20 History Magnesium 100 mg PO DAILY 01/26/20 12/01/20 History [place]-3 Fatty Acids/Fish Oil [Fish 600 mg PO DAILY 04/27/20 12/01/20 History Oil 1,000 mg Softgel] [id number] [id number] 1 tab PO Q6H PRN 11/30/20 12/01/20 History [Excedrin] Docusate [Colace] 100 mg PO DAILY PRN 11/30/20 12/01/20 History Allergies Allergy/AdvReac Type Severity Reaction Status Date / Time nickel Allergy Rash/Hives Verified 12/01/20 11:10 Physical Exam Vitals: Vital Signs Temp Pulse Resp BP 12/01/20 11:12 98.3 F 80 18 121/68 Intake and Output 11/30/20 12/01/20 12/01/20 22:59 06:59 14:59 Other: Weight 45.813 kg Physical Examinations : -Constitutiona : Cooperative , not in acute distress . -HEENT : nech : supple , no Lymphadenopathy , normal thyroid size . : eyes : no ptosis , no icterus, no photophobia . - neurologic : Cranial nerve II to XII intact , no focal neurological deffecit . -psychatric : alert , oriented X 3 , appropriate affect , intact judgment and insight . -Lymphatic : no Lymphadenopathy . - musculoskeltal : Lumber spine moter stegnth lower extremities ,thigh and legs 5/5 Right side , 5/5 Left side deep tendon reflexes : normal Knee Jerk , normal ankle Jerk lumber facet Loading Test =positive Right , positive Left Range of motion of the lumbar spine Flexion 30 degrees, extension 10 degrees strait leg raising test = negative bilaterally Fabere test= negative bilaterally . Results Comments: MRI of the lumbar spine =multi level lumbar degenerative disc disease, multilevel lumbar facet arthropathy ,and lumbar spinal stenosis Assessment and Plan Plan: Assessment and plan=1-lumbar radiculopathy 2-lumbar degenerative disc disease. 3-lumbar spondylosis with lumbar facet arthropathy. 4-lumbar spinal stenosis. Patient would be good candidate to have epidural steroid injection at the L5-S1 fluoroscopy guidance She continued to have pain after LESI consider doing diagnostic medial branch block and possible Time with Patient: Greater than 30 PQRS Measure Charge Sheet Measure #130: Documentation of Current Meds in Medical Chart: Patient's medications documented in chart Measure #226: Tobacco Use: Screen & Cessation Intervention: Pt not a tobacco user Measure #111: Pneumonia Vaccination: Pneumococcal vaccine NOT administered or previously given Measure #47: Advance Care Plan: Advance care planning discussed & documented, pt chose/unable to give Measure #412: Opioid Treatment Agreement: No documentation of signed opioid treatment agreement Measure #408: Opioid Therapy Follow-up Evaluation: Patient had NO f/u eval minimum every 3 months during opioid therapy Measure #317: Preventitive Care & Scrn High Bld Press & F/U: Normal blood pressure, f/u not required Measure #128: Body Mass Index (BMI) Screening & Follow-up: BMI documented BELOW normal parameters - f/u documented Measure #131: Pain Assessment & Follow-up: Pain positive & plan documented, Follow-up scheduled Measure #431: Unhealthy Alcohol Use Preventative Care & Scrn: Patient not identified as an unhealthy alcohol user PQRS Narrative: Smoking Status Never smoker Blood Pressure 121/68 Pain Intensity [Left Hip] 5 Scale Used Numeric (1 - 10) Hx Alcohol Use (MH) No Home Medications: Ambulatory Orders Ascorbic Acid [Vitamin C] 500 mg PO DAILY 09/14/15 Calcium Carbonate [Calcium] 600 mg PO BID 09/14/15 L.acidoph,Paracasei, B.lactis [Probiotic] 1 cap PO DAILY 09/14/15 Cholecalciferol [Vitamin D3] 1,000 unit PO DAILY 09/30/15 Multivit-Min/FA/Lycopen/Lutein [Centrum Silver Tablet] 1 tab PO DAILY 09/30/15 Aspirin EC [Ecotrin Low Dose] 81 mg PO BID 07/03/18 Atorvastatin Calcium [Lipitor] 10 mg PO HS 07/03/18 Losartan [Cozaar] 25 mg PO BID 07/03/18 Omeprazole 20 mg PO QAM 07/03/18 amLODIPine [Norvasc] 5 mg PO QAM 07/03/18 Iron 27 mg PO DAILY 01/26/20 Magnesium 100 mg PO DAILY 01/26/20 [place]-3 Fatty Acids/Fish Oil [Fish Oil 1,000 mg Softgel] 600 mg PO DAILY 04/27/20 [id number] [phone] [Excedrin] 1 tab PO Q6H PRN 11/30/20 Docusate [Colace] 100 mg PO DAILY PRN 11/30/20
== END | disposition home or self-care (01) ==
LOC: PNWHC3 10:50
PROVIDERS: ATTEND Specialist
DX: M48.061 Spinal stenosis, lumbar region without neurogenic claudication (principal); M51.36 Other intervertebral disc degeneration, lumbar region; M47.16 Other spondylosis with myelopathy, lumbar region; M46.96 Unspecified inflammatory spondylopathy, lumbar region; M19.90 Unspecified osteoarthritis, unspecified site; I10 Essential (primary) hypertension; Z79.899 Other long term (current) drug therapy; Z79.82 Long term (current) use of aspirin; Z91.048 Other nonmedicinal substance allergy status
CPT/HCPCS: 99211

== ENCOUNTER 2020-12-18 14:41 | Emergency (ER) | payer MEDICARE, BC ==
[2020-12-18 14:46] VITALS: TEMP 97.9
[2020-12-18] MEDS ORDERED: SODIUM CHLORIDE 0.9% 500 ML 500 ML IV STA (15:26)
--- NOTE | 2020-12-18 15:29 | ED ---
Dizziness HPI - General Chief Complaint: Dizziness Stated Complaint: Lightheaded,Dizziness Time Seen by Provider: 12/18/20 14:48 Source: patient Mode of arrival: wheelchair Limitations: no limitations - History of Present Illness Initial Comments: Dictation was produced using [employer] dictation software. please excuse any grammatical, word or spelling errors. Chief Complaint: 89-year-old female with past medical history of atrial flutter, hypertension and right lower extremity abscess presents to the emergency department for chief complaint of dizziness, infection to the right lower extremity History of Present Illness: And is an 82-year-old female she states that she is here to the emergency department for right lower extremity abscess and feeling dizzy and lightheaded. Patient states that she struck her leg on the corner of a car door 3 weeks ago. She had a area of developing fluctuance to the right lower extremity over the last 2-1/2 weeks. She stated seek medical attention with primary care doctor. No I&D was performed. States that there is some surrounding pain. Patient also feels weak. She states she she's been eating well. The ROS documented in this emergency department record has been reviewed and con firmed by me. Those systems with pertinent positive or negative responses have been documented in the HPI. All other systems are other negative and/or noncontributory. PHYSICAL EXAM: General Impression: Alert and oriented x3, not in acute distress HEENT: Normocephalic atraumatic, extra-ocular movements intact, pupils equal and reactive to light bilaterally, mucous membranes moist. Cardiovascular: Heart regular rate and rhythm Chest: Able to complete full sentences, no retractions, no tachypnea, lungs clear to auscultation bilaterally Abdomen: abdomen soft, non-tender, non-distended, no organomegaly Musculoskeletal: Pulses present and equal in all extremities, no peripheral edema Motor: no focal deficits noted Neurological: CN II-XII grossly intact, no focal motor or sensory deficits noted Skin: Show an area to the right anterior tibia Psych: Normal affect and mood ED course: 89-year-old female presents with fluctuant mass in the right tibia and dizziness. Vital signs upon arrival are within acceptable limits. Laboratory evaluation obtained. CBC remarkable. Metabolic panel for the most part is unremarkable except for sodium of 129. Liver enzymes and urinalysis is negative. Patient given IV fluids. Patient is well-appearing at bedside. She will be discharge. Patient told to salt her food lately. EKG interpretation: Ventricular rate 76, normal sinus rhythm, right bundle branch block,. 176, QRS 132 QTc 465. No MN prolongation, no QTC prolongation, no ST or T-wave changes noted. No old EKG for comparison. Overall, this EKG is unremarkable - Related Data Home Medications Medication Instructions Recorded Confirmed Multivit-Min/FA/Lycopen/Lutein 1 tab PO DAILY 09/30/15 12/18/20 [Centrum Silver Tablet] Aspirin EC [Ecotrin Low Dose] 81 mg PO DAILY 07/03/18 12/18/20 Atorvastatin Calcium [Lipitor] 10 mg PO HS 07/03/18 12/18/20 Losartan [Cozaar] 25 mg PO BID 07/03/18 12/18/20 Omeprazole 20 mg PO DAILY PRN 07/03/18 12/18/20 amLODIPine [Norvasc] 5 mg PO DAILY 07/03/18 12/18/20 Nitrofurantoin Monohyd/M-Cryst 100 mg PO BID 12/18/20 12/18/20 [Macrobid] Allergies Allergy/AdvReac Type Severity Reaction Status Date / Time nickel Allergy Rash/Hives Verified 12/18/20 17:02 Review of Systems ROS Statement: Those systems with pertinent positive or pertinent negative responses have been documented in the HPI. ROS Other: All systems not noted in ROS Statement are negative. Past Medical History Past Medical History: Atrial Flutter, GERD/Reflux, Hypertension, Osteoarthritis (OA), Pneumonia, Skin Disorder Additional Past Medical History / Comment(s): Anal lesion, hx heart murmer, hiatal hernia, gastritis, constipation, cellulitis lower left leg, hx anemia, precancerous skin cancer. History of Any Multi-Drug Resistant Organisms: None Reported Past Surgical History: Adenoidectomy, Hernia Repair, Joint Replacement, Tonsillectomy Additional Past Surgical History / Comment(s): EXC JARVIS CATARACTS. SURG Jarvis Feet. Jarvis Breast Biopsies. Jarvis CTR. TOTAL LT KNEE. Past Anesthesia/Blood Transfusion Reactions: No Reported Reaction Additional Past Anesthesia/Blood Transfusion Reaction / Comment(s): No hx problems with prior blood transfusions. Past Psychological History: No Psychological Hx Reported Smoking Status: Never smoker Past Alcohol Use History: None Reported Past Drug Use History: None Reported - Past Family History Father Additional Family Medical History / Comment(s): Cerebral Blood Clot Mother Family Medical History: No Reported History General Exam Limitations: no limitations Course Vital Signs 12/18/20 14:43 Temperature 97.9 F Pulse Rate 92 Respiratory 16 Rate Blood Pressure 136/78 O2 Sat by Pulse 98 Oximetry Procedures - Incision & Drainage Consent Obtained: verbal consent Site: lower extremity Anesthetic Used: lidocaine 1%, with epi Amount (mLs): 1 I&D Cleaning Method: Alcohol Wipe Sterile Field Used?: Yes Needle Aspiration Performed?: Yes I&D Drainage Obtained: Other (hematoma) Culture Obtained?: Yes Patient Tolerated Procedure: well Medical Decision Making - Lab Data Result diagrams: 12/18/20 15:39 12/18/20 15:39 Lab Results 12/18/20 12/18/20 12/18/20 Range/Units 15:39 15:39 15:39 WBC 5.5 (3.8-10.6) k/uL RBC 3.79 L (3.80-5.40) m/uL Hgb 12.8 (11.4-16.0) gm/dL Hct 37.4 (34.0-46.0) % MCV 98.6 (80.0-100.0) fL MCH 33.8 (25.0-35.0) pg MCHC 34.3 (31.0-37.0) g/dL RDW 12.6 (11.5-15.5) % Plt Count 249 (150-450) k/uL MPV 6.9 Neutrophils % 67 % Lymphocytes % 18 % Monocytes % 8 % Eosinophils % 1 % Basophils % 1 % Neutrophils # 3.7 (1.3-7.7) k/uL Lymphocytes # 1.0 (1.0-4.8) k/uL Monocytes # 0.4 (0-1.0) k/uL Eosinophils # 0.1 (0-0.7) k/uL Basophils # 0.1 (0-0.2) k/uL Sodium 129 L (137-145) mmol/L Potassium 4.3 (3.5-5.1) mmol/L Chloride 97 L (98-107) mmol/L Carbon Dioxide 26 (22-30) mmol/L Anion Gap 6 mmol/L BUN 17 (7-17) mg/dL Creatinine 0.70 (0.52-1.04) mg/dL Est GFR (CKD-EPI)AfAm 89 (>60 ml/min/1.73 sqM) Est GFR (CKD-EPI)NonAf 78 (>60 ml/min/1.73 sqM) Glucose 89 (74-99) mg/dL Plasma Lactic Acid Parth 0.8 (0.7-2.0) mmol/L Calcium 9.6 (8.4-10.2) mg/dL Magnesium 2.3 (1.6-2.3) mg/dL AST (14-36) U/L ALT (4-34) U/L Alkaline Phosphatase (38-126) U/L Ammonia <9 (<30) umol/L Urine Color Urine Appearance (Clear) Urine pH (5.0-8.0) Ur Specific [place] (1.001-1.035) Urine Protein (Negative) Urine Glucose (UA) (Negative) Urine Ketones (Negative) Urine Blood (Negative) Urine Nitrite (Negative) Urine Bilirubin (Negative) Urine Urobilinogen (<2.0) mg/dL Ur Leukocyte Esterase (Negative) 12/18/20 12/18/20 Range/Units 15:39 17:45 WBC (3.8-10.6) k/uL RBC (3.80-5.40) m/uL Hgb (11.4-16.0) gm/dL Hct (34.0-46.0) % MCV (80.0-100.0) fL MCH (25.0-35.0) pg MCHC (31.0-37.0) g/dL RDW (11.5-15.5) % Plt Count (150-450) k/uL MPV Neutrophils % % Lymphocytes % % Monocytes % % Eosinophils % % Basophils % % Neutrophils # (1.3-7.7) k/uL Lymphocytes # (1.0-4.8) k/uL Monocytes # (0-1.0) k/uL Eosinophils # (0-0.7) k/uL Basophils # (0-0.2) k/uL Sodium (137-145) mmol/L Potassium (3.5-5.1) mmol/L Chloride (98-107) mmol/L Carbon Dioxide (22-30) mmol/L Anion Gap mmol/L BUN (7-17) mg/dL Creatinine (0.52-1.04) mg/dL Est GFR (CKD-EPI)AfAm (>60 ml/min/1.73 sqM) Est GFR (CKD-EPI)NonAf (>60 ml/min/1.73 sqM) Glucose (74-99) mg/dL Plasma Lactic Acid Parth (0.7-2.0) mmol/L Calcium (8.4-10.2) mg/dL Magnesium (1.6-2.3) mg/dL AST 32 (14-36) U/L ALT 19 (4-34) U/L Alkaline Phosphatase 61 (38-126) U/L Ammonia (<30) umol/L Urine Color Yellow Urine Appearance Clear (Clear) Urine pH 6.5 (5.0-8.0) Ur Specific [place] 1.006 (1.001-1.035) Urine Protein Negative (Negative) Urine Glucose (UA) Negative (Negative) Urine Ketones Trace H (Negative) Urine Blood Negative (Negative) Urine Nitrite Negative (Negative) Urine Bilirubin Negative (Negative) Urine Urobilinogen <2.0 (<2.0) mg/dL Ur Leukocyte Esterase Negative (Negative) Disposition Clinical Impression: Hyponatremia, Dehydration Disposition: HOME SELF-CARE Condition: Good Instructions (If sedation given, give patient instructions): Dizziness (ED) Is patient prescribed a controlled substance at d/c from ED?: No Referrals: Bronson Anne MD [Primary Care Provider] - 1-2 days
[2020-12-18] MEDS ORDERED: LIDOCAINE 1%-EPI 1:100,000 20 ML VIAL SQ STA (15:43)
[2020-12-18 15:48] LABS: Basophils # (A) 0.1 k/uL (0-0.2); Basophils % (A) 1 %; Eosinophils # (A) 0.1 k/uL (0-0.7); Eosinophils % (A) 1 %; HCT 37.4 % (34.0-46.0); HGB 12.8 gm/dL (11.4-16.0); Lymphocytes % (A) 18 %; MCH 33.8 pg (25.0-35.0); MCHC 34.3 g/dL (31.0-37.0); MCV 98.6 fL (80.0-100.0); Mean Platelet Volume 6.9; Monocytes # (A) 0.4 k/uL (0-1.0); Monocytes % (A) 8 %; Neutrophils # (A) 3.7 k/uL (1.3-7.7); Neutrophils % (A) 67 %; Platelet Count 249 k/uL (150-450); RBC 3.79 m/uL (3.80-5.40); RDW 12.6 % (11.5-15.5); WBC 5.5 k/uL (3.8-10.6)
[2020-12-18 15:59] LABS: Lactic Acid, Venous 0.8 mmol/L (0.7-2.0)
[2020-12-18 16:00] LABS: Calcium 9.6 mg/dL (8.4-10.2); Magnesium 2.3 mg/dL (1.6-2.3); Potassium 4.3 mmol/L (3.5-5.1)
[2020-12-18 18:01] LABS: Appearance,Urine Clear (Clear); Bilirubin,Urine Negative (Negative); Blood,Urine Negative (Negative); Color,Urine Yellow; Glucose,Urine (UA) Negative (Negative); Ketones,Urine Trace (Negative); Leukocyte Esterase,Urine Negative (Negative); Nitrite,Urine Negative (Negative); PH, Urine 6.5 (5.0-8.0); Protein,Urine Negative (Negative); Specific Gravity,Urine 1.006 (1.001-1.035); Urobilinogen,Urine <2.0 mg/dL (<2.0)
[2020-12-18 18:09] LABS: ALT 19 U/L (4-34); AST 32 U/L (14-36); Alkaline Phosphatase 61 U/L (38-126)
[2020-12-18 18:36] VITALS: BP 118/60; PULSE 90; RESP 18
== END 2020-12-18 18:54 | disposition home or self-care (01) ==
LOC: EC 14:41
DX: E86.0 Dehydration (principal); E87.1 Hypo-osmolality and hyponatremia; L02.415 Cutaneous abscess of right lower limb; M19.90 Unspecified osteoarthritis, unspecified site; I10 Essential (primary) hypertension; Z91.048 Other nonmedicinal substance allergy status; Z79.82 Long term (current) use of aspirin; Z79.899 Other long term (current) drug therapy
CPT/HCPCS: 10061; 10160; 36415; 80048; 81003; 82140; 83605; 83735; 84075; 84450; 84460; 85025; 87070; 87075; 87205; 93005; 99285

== ENCOUNTER 2021-01-12 11:26 | Day surgery (SDC) | payer MEDICARE, BC ==
[2021-01-12] MEDS ORDERED: LACTATED RINGERS 1,000 ML IV ONE ×2 (11:39→12:22)
[2021-01-12 11:50] VITALS: TEMP 98.2
[2021-01-12] MEDS ORDERED: TRIAMCINOLONE ACETONIDE 40 MG/ML 1 ML VIAL ONE (12:03)
[2021-01-12] MEDS ORDERED: IOPAMIDOL M200 10 ML VIAL ONE (12:03)
--- NOTE | 2021-01-12 12:13 | P.PCN ---
Date of Procedure: 01/12/21 Description of Procedure: PREOPERATIVE DIAGNOSIS: Lumbar radiculopathy POSTOPERATIVE DIAGNOSIS: Same PROCEDURE PERFORMED: Interlaminar Epidural Steroid Injection at the L5-S1 level, with a left paramedian approach under fluoroscopic guidance SURGEON: Ahsan Cespedes MD ANESTHESIA: Local with 1% lidocaine 3 ml Fluoroscopy was used for the procedure and images were saved in the radiology portion of the chart. EBL: Minimal PROCEDURE INDICATION: The patient presents with lumbar radicular symptoms unresponsive to conservative treatment. This is the first lumbar epidural steroid injection PROCEDURE DESCRIPTION / TECHNIQUE: The patient was seen and identified in the preoperative area. Risks, benefits, complications including but not limited to infections ,bleeding ,allergic reaction to the medications ,nerve damage and incomplete pain relief, and alternatives were discussed with the patient. The patient agreed to proceed with the procedure and signed the consent. IV was started, and vital signs were stable. Patient was taken to the OR and time out was completed. The patient was placed in the prone position on procedure table and a pillow was placed under the chest area. The cervical area was prepped and draped in the usual sterile fashion. Conscious sedation was used during the procedure to decrease patients anxiety. Vital signs was monitored during the entire procedure. Using anterior-posterior fluoroscopy, the L5-S1 interlaminar space was identified and the skin over this site was marked and then infiltrated with 1% lidocaine subcutaneously. Subsequently, a 20-gauge Tuohy epidural needle was inserted and advanced toward the epidural space using the loss of resistance [place] and guided by AP and lateral views. The correct needle position in the epidural space was verified. After negative aspiration for blood and CSF and in the absence of paresthesias, Isovue 200 2 mL's was injected under live fluoroscopy with good epidural spread. After negative aspiration, a 5 mL mixture containing 3 mL PFNS, 1 ml 1% lidocaine, 40 mg kenalog. Needle was withdrawn intact, skin was cleansed, and bandages were applied. COMPLICATIONS: None DISPOSITION / PLANS: The patient was placed in a supine position and transferred to the recovery area in a stable condition for observation. There was no evidence of lower extremity motor or sensory deficit after the procedure. Patient was discharged from the recovery room after meeting discharge criteria. Home discharge instructions were given to the patient by the staff. The patient will be scheduled a [follow up/repeat procedure] in the clinic in 2-4 weeks.
[2021-01-12 12:31] VITALS: BP 147/72; RESP 16
[2021-01-12 12:36] VITALS: PULSE 82
--- NOTE | 2021-01-12 13:09 | FL ---
Fluoroscopy HISTORY: Pain 7 seconds fluoroscopy time supplied to the referring clinician. 2 intraoperative C-arm images docume nt the procedure. See dictated report from anesthesia.
== END 2021-01-12 12:51 | disposition home or self-care (01) ==
LOC: ORPAIN 11:26
PROVIDERS: ATTEND Anesthesiology
DX: M54.16 Radiculopathy, lumbar region (principal)
CPT/HCPCS: 62323; J3301; Q9966

== ENCOUNTER → 2021-02-06 | Outpatient (CLI) | payer MEDICARE, BC ==
[2021-02-06 11:32] VITALS: BP 151/51; PULSE 62; RESP 16; TEMP 98.1
--- NOTE | 2021-02-06 11:43 | P.PN ---
Subjective Progress Note Date: 02/06/21 This is an 89-year-old lady with history of chronic lower back pain with radiation to the left lower extremity however the left leg pain improved significantly after the last epidural steroid injection. Her pain starts in the late afternoon and she usually takes one pill of aspirin for it. Patient denies new-onset weakness, bowel/bladder incontinence, or any other signs or symptoms of cauda equina syndrome. There are no signs of acute intoxication, and no indications of medication diversion or overuse. In addition to above, 13-point review of systems is also negative for chest pain, shortness of breath, changes in vision, changes in hearing, new onset weakness, abdominal pain, diarrhea, extreme fatigue, malaise, fever, skin changes, homicidal or suicidal ideation, or bowel or bladder incontinence. Vital Signs: Reviewed in EMR Gen: AAOx3, NAD HEENT: PERRLA,hearing grossly normal Pulm: resp unlabored Neck: supple, trachea midline Neuro exam of the lower extremities: Decreased knee flexion and extension to 4 out of 5 bilaterally but normal ankle flexion and extension. Positive kyphoscoliosis of the thoracolumbar area Tenderness in the paravertebral musculature: Positive tenderness around the left sacroiliac joint and also in the lumbar paravertebral musculature Neuro: CN II-XII grossly intact, Imaging: Reviewed in EMR/chart Assessment: Lumbar DDD Lumbar spondylosis without myelopathy Lumbar stenosis Possible left sacroiliitis Thoracolumbar kyphoscoliosis Plan: 1. Explanation: When patients on opioids, opioid and psychological risk scores were reviewed. Diagnoses, prognoses, and multiple treatment options including but not limited to physical therapy, interventional therapies, adjuvant medical therapies, narcotic medication therapies, and surgery were discussed with the patient and all questions were answered to the patient's satisfaction. 2. Opioid agreement:When patients are prescribed opoids through our clinic, opioid agreement is signed with the patient and the patient is warned not to use opioids while driving or before driving and not to combine opioids with benzodiazepines or alcohol. 3. Counseling: When patient is smoking or obese, the patient was counseled extensively on SMOKING CESSATION, BODY MASS INDEX, EXERCISE. Specifically, the patient was instructed regarding the importance of smoking cessation, obesity, and exercise in the context of both chronic pain and overall health. 4. Procedures: Scheduled for a second lumbar epidural steroid injection at the L5-S1 level in the left paramedian approach. 5. Consultations: None 6. Investigations: None 7. Medications: I asked the patient to use Tylenol for her pain rather than aspirin however she has to take aspirin once a day as per her family physician. 8. Disposition: Proceed with the above-mentioned procedure as soon as possible 9. Maps were reviewed and were appropriate. Objective - Vital Signs Vital signs: Vital Signs Temp 98.1 F 02/06/21 11:27 Pulse 62 02/06/21 11:27 Resp 16 02/06/21 11:27 BP 151/51 02/06/21 11:27 Pulse Ox 99 02/06/21 11:27
== END | disposition home or self-care (01) ==
LOC: PNWHC3 11:15
PROVIDERS: ATTEND Anesthesiology
DX: M48.061 Spinal stenosis, lumbar region without neurogenic claudication (principal); M51.36 Other intervertebral disc degeneration, lumbar region; M47.816 Spondylosis without myelopathy or radiculopathy, lumbar region
CPT/HCPCS: 99211

== ENCOUNTER 2021-03-14 12:10 | Day surgery (SDC) | payer MEDICARE, BC ==
[2021-03-13 11:19] VITALS: BMI 19.5
[2021-03-14] MEDS ORDERED: LIDOCAINE 1% (10MG/ML) FOR IV START INTRADERMA PRN (12:57)
[2021-03-14] MEDS ORDERED: LACTATED RINGERS 1,000 ML IV SCH (12:57)
[2021-03-14] MEDS ORDERED: IOPAMIDOL M200 10 ML VIAL ONE (13:25)
[2021-03-14] MEDS ORDERED: methylPREDNISolone ACETATE 40 MG/ML 1 ML VIAL ONE (13:25)
--- NOTE | 2021-03-14 13:36 | P.PCN ---
Date of Procedure: 03/14/21 Procedure(s) Performed: PREOPERATIVE DIAGNOSIS: 1- Lumbar Degenerative Disc Diseases 2-Lumbar spondylosis with Facet arthropathy without myelopathy POSTOPERATIVE DIAGNOSIS: Same as preop diagnosis. PROCEDURE 1. Lumbar epidural steroid injection under fluoroscopic guidance at the L5-S1 level. (Fluoroscopy imaging was available in radiology department) 2. Lumbar epidurogram. ANESTHESIA: Local with 1% lidocaine 3 ml only EBL: Minimal PROCEDURE INDICATION: The patient with low back pain and radiculitis symptoms unresponsive to conservative treatment. Fluoroscopy was used to optimize visualization of the needle placement and to maximize safety. PROCEDURE DESCRIPTION / TECHNIQUE: The patient was seen and identified in the preoperative area. Risks, benefits, complications including but not limited to infections ,bleeding ,allergic reaction to the medications ,nerve damage and not complete pain releife , and alternatives were discussed with the patient. The patient agreed to proceed with the procedure and signed the consent. IV was started, and vital signs were stable. Patient was taken to the OR and time out was completed. The patient was placed in the prone position on procedure table and a pillow was placed under the abdomen to reduce lumbar lordosis. The lumbosacral area was prepped and draped in the usual sterile fashion.ere closely monitored during the procedure. Vital signs was monitered during the entire procedure. Using anterior-posterior fluoroscopy, the L5-S1 interlaminar space was identified and the skin over this site was marked and then infiltrated with 1% lidocaine subcutaneously. Subsequently, a 20-gauge Tuohy epidural needle was inserted and advanced toward the epidural space using the ``Loss of resistance technique and guided by AP and lateral fluoroscopy. The correct needle position in the epidural space was verified with the injection of 2 mL of the water soluble contrast dye Isovue 200 contrast and observing an excellent epidurogram with the epidural spread of the dye, after negative aspiration for blood and CSF and in the absence of paresthesias. Again after negative aspiration, a 6 ml mixture containing 40 mg of Depo-medrol , and 2 ml of preservative free Normal Saline, and 2 ml of preservative free lidocaine 1% solution was injected and a washout of epidurogram was seen. Needle was withdrawn intact, skin was cleansed, and bandages were applied. COMPLICATIONS: None DISPOSITION / PLANS: The patient was placed in a supine position and transferred to the recovery area in a stable condition for observation. There was no evidence of lower extremity motor or sensory deficit after the procedure. [place] davila was discharged from the recovery room after meeting discharge criteria. Home discharge instructions were given to the patient by the staff. The patient was reexamined prior to discharge. The patient will schedule a follow up in the clinic in 2-4 weeks.
--- NOTE | 2021-03-14 13:51 | FL ---
EXAMINATION TYPE: FL guided pain mgmt statistic DATE OF EXAM: 03/14/2021 CLINICAL HISTORY: Low back pain. TECHNIQUE: Fluoroscopy. COMPARISON: None. FINDINGS: Fluoroscopic guidance was provided during pain relief procedure performed by Dr. Cooper . A total of 5 seconds of fluoroscopic time was utilized during the procedure and 1 spot images are acquired. Single image acquired shows needle localization with contrast injection at L5 level. IMPRESSION: As Above.
[2021-03-14 14:06] VITALS: BP 163/70; PULSE 63
== END 2021-03-14 14:15 | disposition home or self-care (01) ==
LOC: ORPAIN 12:10
PROVIDERS: ATTEND Specialist
DX: M51.36 Other intervertebral disc degeneration, lumbar region (principal); M47.816 Spondylosis without myelopathy or radiculopathy, lumbar region
CPT/HCPCS: 62323; J1030; Q9966

== ENCOUNTER → 2021-04-03 | Outpatient (CLI) | payer MEDICARE, BC ==
[2021-04-03 12:21] VITALS: BP 176/80; PULSE 64; RESP 18; TEMP 98.6
--- NOTE | 2021-04-03 12:44 | P.PN ---
Subjective Progress Note Date: 04/03/21 This is follow up visit for this 89 years old female with a chronic history of severe low back pain, she is diagnosed with lumbar degenerative disc disease , spinal stenosis , lumbar spondylosis with lumbar facet arthropathy , status post lumbar epidural steroid injections 2 , she reported that she got minimum benefit from it, he continued to have severe low back pain and the pain is constant and increases with any activity interfere with the quality of life, she denies any motor or sensory deficit she denies any change in the bowel movements or urination, patient tried physical therapy, heat and ice, chiropractors, NSAIDs, steroid early without any benefit, she ambulate without difficulty, the pain intensity interfere with her activity Physical Examinations : -Constitutiona : Cooperative , not in acute distress . -HEENT : nech : supple , no Lymphadenopathy , normal thyroid size . : eyes : no ptosis , no icterus, no photophobia . - neurologic : Cranial nerve II to XII intact , no focal neurological deffecit . -psychatric : alert , oriented X 3 , appropriate affect , intact judgment and insight . -Lymphatic : no Lymphadenopathy . - musculoskeltal : Lumber spine moter stegnth lower extremities ,thigh and legs 5/5 Right side , 5/5 Left side deep tendon reflexes : normal Knee Jerk , normal ankle Jerk lumber facet Loading Test =positive Right , positive Left Range of motion of the lumbar spine Flexion 30 degrees, extension 10 degrees strait leg raising test = negative bilaterally Fabere test= negative bilaterally . Results= MRI of the lumbar spine =multi level lumbar degenerative disc disease, multilevel lumbar facet arthropathy ,and lumbar spinal stenosis Assessment and plan= 1-Lumbar spinal stenosis 2-lumbar degenerative disc disease. 3-lumbar spondylosis with lumbar facet arthropathy. She had no benefit from lumbar epidural steroid injection She will be good candidate to have diagnostic medial branch block lumbar area at L4 5 and L5-S1 levels x2 and possible RFA - PQRS measures = - Patient's medications are documented in the chart. -Tobacco use is negative and counseling.Given. -Patient's has not received pneumococcal vaccine. -Advanced care planning discussed, patient not eligible. -Opiate contract not signed. -Pain positive and follow-up visit/procedure is scheduled. -Patient's blood pressure measured [176/80 ] , and documented in the record ,and patient will follow up with the primary care. -Patient's weight was measured and body mass index [ ] within normal limits and counseling was done. and patient instructed to follow-up with the primary care physician. -Patient was not identified as an unhealthy alcohol user Objective - Vital Signs Vital signs: Vital Signs Temp 98.6 F 04/03/21 12:14 Pulse 64 04/03/21 12:14 Resp 18 04/03/21 12:14 BP 176/80 04/03/21 12:14 Pulse Ox
== END | disposition home or self-care (01) ==
LOC: PNWHC3 11:38
PROVIDERS: ATTEND Specialist
DX: M51.36 Other intervertebral disc degeneration, lumbar region (principal); M47.896 Other spondylosis, lumbar region; M48.061 Spinal stenosis, lumbar region without neurogenic claudication
CPT/HCPCS: 99211

== ENCOUNTER 2021-05-18 11:46 | Day surgery (SDC) | payer MEDICARE, BC ==
[2021-05-17 09:30] VITALS: BMI 18.8
[2021-05-18 12:15] VITALS: TEMP 98.3
[2021-05-18] MEDS ORDERED: LACTATED RINGERS 1,000 ML IV ONE (12:19)
[2021-05-18] MEDS ORDERED: LIDOCAINE 1% (10MG/ML) FOR IV START INTRADERMA ONE (12:20)
[2021-05-18] MEDS ORDERED: LACTATED RINGERS 1,000 ML IV SCH (12:30)
[2021-05-18] MEDS ORDERED: ROPIVACAINE 5MG/ML 20ML VIAL ONE (12:39)
[2021-05-18] MEDS ORDERED: MIDAZOLAM 2 MG/2 ML VIAL ONE (12:39)
[2021-05-18] MEDS ORDERED: TRIAMCINOLONE ACETONIDE 40 MG/ML 1 ML VIAL ONE (12:39)
[2021-05-18] MEDS ORDERED: fentaNYL (PF) 50 MCG/ML 2 ML AMP ONE (12:39)
--- NOTE | 2021-05-18 12:53 | P.PCN ---
Date of Procedure: 05/18/21 Description of Procedure: Pre- and Post-operative Diagnosis: Lumbar facet arthropathy, and lumbar spondylosis without myelopathy. Procedure: #1 Diagnostic Medial Branch Block at bilateral Lumbar 4/5 and #1 diagnostic dorsal ramus block at Lumbar 5/ sacral ala levels (total 4 levels) Surgeon: Pradeep Rosenberg Anesthesia: Local: 1% Lidocaine, IV sedation : Versed and fentanyl. Complications: None EBL: None Specimen removed: None Fluoroscopic image: Saved to patient electronic medical records. Indications for Procedure: The patient is well known to pain clinic for his chronic low back pain management. The lumbar facet loading test was positive with a clinical diagnosis of lumbar facet arthropathy. Failed with conservative therapy. Came here for interventional help for better pain relief. Procedure and Findings: The patient was seen and examined. The written informed consent was obtained after explaining the risks, benefits and alternatives of the procedure to the patient. The patient was brought to the procedure room and was placed in the prone position on the operating table table. A pillow was placed under the abdomen to reduce lumbar lordosis. Standard anesthesia monitoring was done through out the procedure. The skin preparation was done with ChloraPrep, and draping was done in usual sterile fashion. Sterile technique was observed throughout the procedure. Under fluoroscopic guidance, right the Lumbar 4, 5 and Sacral ala levels were identified in the AP view. For lumbar L4, and L5 levels the targeting area of superior articular process, and close to the most medial and superior aspect of transverse process identified, marked. 1ml of 1% Lidocaine was used with a 25 gauge needle to achieve adequate local anesthesia of the skin and subcutaneous tissue at each level. A 22 gauge 3.5 inch spinal needle was placed and advanced targeting area which was close to the most medial and superior aspect of the transverse process. For Lumbar 5/ sacral ala level, fluoroscope was used in the anteroposterior view, and the needle tip was placed at the superior and most medial part of sacral ala close to the superior articular process. A bony contact was obtained and needle tip position was confirmed at anteroposterior view. No paresthesia was noted. A negative aspiration was confirmed. 1 ml solution per level was injected, the block solution containing 5 ml of 0.5% ropivacaine preservative-free solution mixed with 40 MG of Kenalog. The needles were removed intact. Entire procedure repeated on the left side. Lumbar area was cleaned and bandages were applied. Disposition : The patient tolerated the procedure very well. The patient was transferred to the recovery room and remained stable until discharged home. The patient was given detailed discharge instructions for infection, bleeding, and increased pain at the injection site, and was advised to seek immediate medical attention should significant side effects develop. The patient will be scheduled with Pain Clinic within 4 weeks for repeat procedure if it's helpful.
[2021-05-18] MEDS ORDERED: IV FLUID CONTINUATION 1,000 ML IV ONE (13:07)
--- NOTE | 2021-05-18 13:26 | FL ---
EXAMINATION TYPE: FL guided pain mgmt statistic DATE OF EXAM: 05/18/2021 HISTORY: Fluoroscopy time 3 seconds of fluoroscopy provided. IMPRESSION: 1. Fluoroscopy time.
[2021-05-18 14:11] VITALS: PULSE 88
[2021-05-18 14:12] VITALS: BP 110/74; RESP 18
== END 2021-05-18 14:00 | disposition home or self-care (01) ==
LOC: ORPAIN 11:46
DX: G89.29 Other chronic pain (principal); M47.816 Spondylosis without myelopathy or radiculopathy, lumbar region; M19.90 Unspecified osteoarthritis, unspecified site; Z98.890 Other specified postprocedural states; Z91.048 Other nonmedicinal substance allergy status; Z78.0 Asymptomatic menopausal state
CPT/HCPCS: 64493; 64494; J2250; J3301; J3010; J2795; 99152

== ENCOUNTER 2021-06-27 11:04 | Day surgery (SDC) | payer MEDICARE, BC ==
[2021-06-27 11:36] VITALS: RESP 16; TEMP 98.8
[2021-06-27] MEDS ORDERED: LACTATED RINGERS 1,000 ML IV ONE (11:45)
[2021-06-27] MEDS ORDERED: fentaNYL (PF) 50 MCG/ML 2 ML AMP ONE (11:51)
[2021-06-27] MEDS ORDERED: IOPAMIDOL M200 10 ML VIAL ONE (11:51)
[2021-06-27] MEDS ORDERED: methylPREDNISolone ACETATE 40 MG/ML 1 ML VIAL ONE (11:51)
[2021-06-27] MEDS ORDERED: MIDAZOLAM 2 MG/2 ML VIAL ONE (11:51)
--- NOTE | 2021-06-27 12:07 | P.PCN ---
Date of Procedure: 06/27/21 Procedure(s) Performed: PREOPERATIVE DIAGNOSIS: 1- Lumbar Degenerative Disc Diseases 2-Lumbar spondylosis with Facet arthropathy without myelopathy POSTOPERATIVE DIAGNOSIS: Same as preop diagnosis. PROCEDURE 1. Lumbar epidural steroid injection under fluoroscopic guidance at the L5-S1 level. (Fluoroscopy imaging was available in radiology department) 2. Lumbar epidurogram. ANESTHESIA: Local with 1% lidocaine 3 ml and , moderate sedation with intravenous Versed 1 mg ,and fentanyle 50 Mcg EBL: Minimal PROCEDURE INDICATION: The patient with low back pain and radiculitis symptoms unresponsive to conservative treatment. Fluoroscopy was used to optimize visualization of the needle placement and to maximize safety. PROCEDURE DESCRIPTION / TECHNIQUE: The patient was seen and identified in the preoperative area. Risks, benefits, complications including but not limited to infections ,bleeding ,allergic reaction to the medications ,nerve damage and not complete pain releife , and alternatives were discussed with the patient. The patient agreed to proceed with the procedure and signed the consent. IV was started, and vital signs were stable. Patient was taken to the OR and time out was completed. The patient was placed in the prone position on procedure table and a pillow was placed under the abdomen to reduce lumbar lordosis. The lumbosacral area was prepped and draped in the usual sterile fashion.ere closely monitored during the procedure. Con scious sedation was used during the procedure to decrease patients anxiety. Vital signs was monitered during the entire procedure. Using anterior-posterior fluoroscopy, the L5-S1 interlaminar space was identified and the skin over this site was marked and then infiltrated with 1% lidocaine subcutaneously. Subsequently, a 20-gauge Tuohy epidural needle was inserted and advanced toward the epidural space using the ``Loss of resistance technique and guided by AP and lateral fluoroscopy. The correct needle position in the epidural space was verified with the injection of 2 mL of the water soluble contrast dye Isovue 200 contrast and observing an excellent epidurogram with the epidural spread of the dye, after negative aspiration for blood and CSF and in the absence of paresthesias. Again after negative aspiration, a 6 ml mixture containing 40 mg of Depo-medrol , and 2 ml of preservative free Normal Saline, and 2 ml of preservative free lidocaine 1% solution was injected and a washout of epidurogram was seen. Needle was withdrawn intact, skin was cleansed, and bandages were applied. COMPLICATIONS: None DISPOSITION / PLANS: The patient was placed in a supine position and transferred to the recovery area in a stable condition for observation. There was no evidence of lower extremity motor or sensory deficit after the procedure. Patient was discharged from the recovery room after meeting discharge criteria. Home discharge instructions were given to the patient by the staff. The patient was reexamined prior to discharge. The patient will schedule a follow up in the clinic in 2-4 weeks.
[2021-06-27] MEDS ORDERED: IV FLUID CONTINUATION 1,000 ML IV ONE (12:13)
[2021-06-27 12:41] VITALS: BP 159/63; PULSE 62
--- NOTE | 2021-06-27 13:07 | FL ---
Fluoroscopy HISTORY: Pain 5 seconds fluoroscopy time supplied to the referring clinician. 1 intraoperative C-arm images docume nt the procedure. See dictated report from anesthesia.
== END 2021-06-27 13:05 | disposition home or self-care (01) ==
LOC: ORPAIN 11:04
PROVIDERS: ATTEND Specialist
DX: M51.36 Other intervertebral disc degeneration, lumbar region (principal); M51.26 Other intervertebral disc displacement, lumbar region; M47.816 Spondylosis without myelopathy or radiculopathy, lumbar region
CPT/HCPCS: 62323; J2250; J1030; J3010; Q9966

== ENCOUNTER → 2021-07-19 | Outpatient (CLI) | payer MEDICARE, BC ==
[2021-07-19 13:09] VITALS: BP 141/64; PULSE 63; RESP 16; TEMP 98.3
--- NOTE | 2021-07-19 13:10 | P.PN ---
Subjective Progress Note Date: 07/19/21 Principal diagnosis: A 89 yr old female with daughter at side with a history of severe and chronic low back pain secondary to lumbar degenerative disc diseases and lumbar spondylosis with facet arthropathy presents today for an evaluation status post LESI L5-S1. Patient states she experienced no pain relief from the procedure. Pain level waxes and wanes in intensity but is currently 6 out of 10. Pain is dull/ achy in the lower half of the lumbar spine with radiation of pain left and right of midline to the paraspinal muscles. Pain is provoked by bending, lifting, standing for periods of 20 minutes or walking for periods of 5 minutes or more. Pain is alleviated with medications, topicals, injections, home based stretching regimen, massage, hot bath with Epsom salts, repositioning and rest. Interventional pain procedures completed include LESI L5-S1 Patient denies any side effects of the medication(s), denies excessive drowsiness or sleepiness, denies suicidal ideation and reports that the current pain medication is helping to control the pain and improve activities of daily living. Patient denies any motor or sensory deficits. Patient denies any fever or night sweats, denies any change in the bowel movements or urination. Physical Examination: -Constitutional: Cooperative. Not in acute distress . -HEENT: Neck is supple. No lymphadenopathy. No thyromegaly. Normal thyroid size. Eyes: No ptosis , no icterus, no photophobia. ENT: No auditory deficits. Normal oropharynx. No Thrush. - Respiratory: Chest clear to auscultations bilaterally. No wheezing. No rhonchi. - Cardiovascular: Regular rate and rhythm. S1 / S2 , no S3 , no S4. - Gastrointestinal: Abdomen soft no tenderness. Bowel sounds positive in all four quadrants. No organomegaly. - Genitourinary: Deferred. - Neurologic: Cranial nerve II to XII intact. No focal neurological deficits. - Psychatric: Alert & oriented x 3. Matching mood & appropriate affect. Judgment and insight intact. - Lymphatic: No Lymphadenopathy. - Musculoskeletal: Cervical spine: Muscle bulk/ tone/ strength in the bilateral upper extremities normal. Facet loading test cervical area positive. Lumbar spine: Motor bulk/ tone/ strength lower extremities , thigh and legs : 5/5 Deep tendon reflexes : Normal Knee Jerk. Normal Ankle Jerk . Vertebral body tenderness to palpation over L4, L5, S1 Lumbar Facet Loading Test positive over L4 to L5 and L5 to S1 bilaterally Straight Leg Raise: positive at 30 degrees right side/ left side Gaenslen's Test positive Sacral spine : Severe tenderness over the Sacroiliac joint: right side / left side Range of motion: Flexion of the lumbar spine <60 degrees Range of motion: Extension of the lumbar spine <20 degrees Gaenslen's Test positive Rhea test: positive right side / left side Assessment and plan: Chronic low back pain secondary to lumbar degenerative disc disease , lumbar spondylosis with facet arthropathy without myelopathy Recommendation of trigger point injections bilateral L1 to L5 with Toradol 60 mg/2 mL Risks, benefits of procedure discussed and pt verbalized understanding Also follow-up with her orthopedic surgeon to explore other treatment options All patient questions answered MAPS reviewed and it was appropriate. I have spent 31 minutes on patient care today. Dr Cooper was available by phone for the evaluation of this patient. The time was used to review the medical records including relevant urine studies and Prescription history (MAPs), review of the available imaging, evaluation and examination of the patient, coordination of care with the medical staff and if applicable referring physicians, as well as creation of the medical record Objective - Vital Signs Vital signs: Intake & Output 07/18/21 07/19/21 07/19/21 18:59 06:59 18:59 Weight 45.359 kg PQRS Measure Charge Sheet Mode of Arrival: Ambulatory PQRS Narrative: Smoking Status Never smoker Blood Pressure 141/64 Pain Intensity [Left Buttock] 5 Scale Used Numeric (1 - 10) Hx Alcohol Use (MH) No Home Medications: Ambulatory Orders Multivit-Min/FA/Lycopen/Lutein [Centrum Silver Tablet] 1 tab PO DAILY 09/30/15 amLODIPine [Norvasc] 5 mg PO DAILY 07/03/18 atenoloL [Tenormin] 25 mg PO DAILY 02/02/21 Allergy Pill 1 tab PO DAILY 03/13/21 Ascorbic Acid [Vitamin C] 1,000 mg PO DAILY 03/13/21 Cholecalciferol [Vitamin D3 (25 Mcg = 1000 Iu)] 25 mcg PO DAILY 03/13/21 Ferrous Sulfate [Feosol] 325 mg PO DAILY 03/13/21 Fish Oil/Dha/Epa [Fish Oil 1,200 mg Fish Oil] 1 each PO DAILY 03/13/21 Vitamin E (Dl,Tocopheryl Acet) [Vitamin E (400 Iu = 180 mg)] 180 mg PO DAILY 03/13/21 Ibuprofen 400 mg PO Q6H 06/27/21
== END | disposition home or self-care (01) ==
LOC: PNWHC3 12:58
PROVIDERS: ATTEND Physician Assistant Medical
DX: M47.896 Other spondylosis, lumbar region (principal); M51.36 Other intervertebral disc degeneration, lumbar region
CPT/HCPCS: 99211